=== PATIENT | male | born 1990 | race Caucasian/White ===

== ENCOUNTER 2017-06-22 18:23 | Emergency (ER) | payer OTHER ==
[2017-06-22 18:35] VITALS: RESP 20
[2017-06-22] MEDS ORDERED: ACETAMINOPHEN TAB 500 MG TAB PO STA (18:45)
[2017-06-22] MEDS ORDERED: IBUPROFEN 600 MG TAB PO STA (18:45)
--- NOTE | 2017-06-22 18:58 | ED ---
General Adult HPI - General Chief complaint: Upper Respiratory Infection Stated complaint: flu like symptoms, fever Time Seen by Provider: 06/22/17 18:41 Source: patient Mode of arrival: ambulatory Limitations: no limitations - History of Present Illness Initial comments: 27-year-old male patient presents to emergency department today for evaluation of fever, body aches, sore throat, and cough since Sunday. Patient states that symptoms started with body aches and sore throat Sunday evening. He states that over the last couple days he also developed a dry cough, and today felt feverish. He states that his ears hurt. States he took his temperature at home, it was 105 temporal. He states that he has had a headache with general bodyaches throughout the day today. He states he did take ibuprofen around 3:45 this afternoon. He denies any sick contacts. Patient denies any recent rash, shortness breath, chest pain, abdominal pain, nausea, vomiting, diarrhea, constipation, back pain, numbness, tingling, dizziness, weakness, hematuria, dysuria, urinary urgency, urinary frequency, visual changes, or any other complaints. - Related Data Home Medications Medication Instructions Recorded Confirmed Ibuprofen [Motrin] 800 mg PO ONCE PRN 06/22/17 06/22/17 Multivitamin [Men's Multi-Vitamin] 1 tab PO DAILY 06/22/17 06/22/17 Allergies Allergy/AdvReac Type Severity Reaction Status Date / Time No Known Allergies Allergy Verified 06/22/17 19:05 Review of Systems ROS Statement: Those systems with pertinent positive or pertinent negative responses have been documented in the HPI. ROS Other: All systems not noted in ROS Statement are negative. Past Medical History Past Medical History: No Reported History History of Any Multi-Drug Resistant Organisms: MRSA Date of last positivie culture/infection: 2006 MDRO Source:: leg Past Surgical History: No Surgical Hx Reported Past Psychological History: No Psychological Hx Reported Smoking Status: Former smoker Past Alcohol Use History: Occasional Past Drug Use History: None Reported General Exam Limitations: no limitations General appearance: alert, in no apparent distress, other (This is a well- developed, well-nourished adult male patient no acute distress. Vital signs on presentation temperature 102.7F, pulse 95, respirations 20, blood pressure 103/ 66, pulse ox 97% on room air.) Eye exam: Present: normal appearance, PERRL, EOMI. Absent: scleral icterus, conjunctival injection, periorbital swelling ENT exam: Present: normal exam, mucous membranes moist, TM's normal bilaterally. Absent: normal oropharynx (Oropharyngeal erythema with tonsillar hypertrophy. No tonsillar exudate noted.) Neck exam: Present: normal inspection. Absent: tenderness, meningismus, lymphadenopathy Respiratory exam: Present: normal lung sounds bilaterally. Absent: respiratory distress, wheezes, rales, rhonchi, stridor Cardiovascular Exam: Present: regular rate, normal rhythm, normal heart sounds. Absent: systolic murmur, diastolic murmur, rubs, gallop, clicks GI/Abdominal exam: Present: soft, normal bowel sounds. Absent: distended, tenderness, guarding, rebound, rigid Neurological exam: Present: alert, oriented X3, CN II-XII intact Psychiatric exam: Present: normal affect, normal mood Skin exam: Present: warm, dry, intact, normal color. Absent: rash Course Vital Signs 06/22/17 06/22/17 18:32 20:20 Temperature 102.7 F H 99.7 F H Pulse Rate 95 77 Respiratory 20 20 Rate Blood Pressure 103/66 136/63 O2 Sat by Pulse 97 96 Oximetry Medical Decision Making - Medical Decision Making 27-year-old male patient presented for evaluation of cough, sore throat, and fever. Influenza test was negative. Chest x-ray was clear. Patient was given Tylenol number Profen here in the department. Did have him drink 2 large glasses of water. He tolerated oral intake without difficulty. Vital signs have improved. Patient states he is feeling somewhat better. He will be discharged home with instructions to increase fluids, take Tylenol Motrin for fever control. Follow-up with his primary care physician for recheck in 1-2 days. Return here immediately for any new, worsening, or concerning symptoms. Patient verbalizes understanding and agrees with this plan. - Lab Data Lab Results 06/22/17 Range/Units 19:07 Influenza Type A RNA Not Detected (Not Detectd) Influenza Type B (PCR) Not Detected (Not Detectd) - Radiology Data Radiology results: report reviewed, image reviewed Two-view x-ray of the chest shows the heart and mediastinum are normal. Lungs are clear. Diaphragm is normal. Bony thorax appears normal. Pressure by Dr. Nichols shows normal chest. Disposition Clinical Impression: Viral upper respiratory infection Disposition: HOME SELF-CARE Condition: Good Instructions: Upper Respiratory Infection (ED) Additional Instructions: Continue Tylenol Motrin for fever control. Increase fluids. Follow-up with her primary care physician for recheck in 1-2 days. Return here immediately for any new, worsening, or concerning symptoms. Referrals: None,Stated [Primary Care Provider] - 1-2 days Time of Disposition: 20:45
--- NOTE | 2017-06-22 19:53 | XR ---
EXAMINATION TYPE: XR chest 2V DATE OF EXAM: 06/22/2017 COMPARISON: NONE HISTORY: Chest pain TECHNIQUE: Frontal and lateral views of the chest are obtained. FINDINGS: Heart and mediastinum are normal. Lungs are clear. Diaphragm is normal. Bony thorax appear s normal. IMPRESSION: Normal chest
[2017-06-22 20:24] VITALS: BP 136/63; PULSE 77; TEMP 99.7
== END 2017-06-22 20:49 | disposition home or self-care (01) ==
LOC: EC 18:23
DX: J06.9 Acute upper respiratory infection, unspecified (principal); Z79.899 Other long term (current) drug therapy; Z87.891 Personal history of nicotine dependence
CPT/HCPCS: 71020; 87502; 99283

== ENCOUNTER 2018-01-07 23:29 | Emergency (ER) | payer BC ==
[2018-01-07] MEDS ORDERED: IBUPROFEN 600 MG TAB PO STA (23:42)
--- NOTE | 2018-01-08 01:49 | XR ---
EXAMINATION TYPE: XR chest 2V DATE OF EXAM: 01/08/2018 COMPARISON: 06/22/2017 HISTORY: Cough TECHNIQUE: Frontal and lateral views of the chest are obtained. FINDINGS: Heart and mediastinum are normal. Lungs are clear. Diaphragm is normal. Bony thorax is nor mal. IMPRESSION: Normal chest. No change.
--- NOTE | 2018-01-08 01:58 | ED ---
URI HPI - General Chief Complaint: Upper Respiratory Infection Stated Complaint: FEVER Time Seen by Provider: 01/08/18 01:09 Source: patient, family, RN notes reviewed Mode of arrival: ambulatory Limitations: no limitations - History of Present Illness Initial Comments: This is a 27-year-old male who presents to the emergency department with chief complaint of cough and fever. Patient states states that symptoms started one week ago. He states that the cough is nonproductive. States he is a nonsmoker. He also admits to associated sore throat and stuffy nose. Denies difficulty breathing, chest pain, abdominal pain, nausea or vomiting, diarrhea or constipation. States he did not receive the influenza vaccine this year. - Related Data Home Medications Medication Instructions Recorded Confirmed No Known Home Medications [No 01/07/18 01/07/18 Known Home Medications] Allergies Allergy/AdvReac Type Severity Reaction Status Date / Time No Known Allergies Allergy Verified 01/07/18 23:39 Review of Systems ROS Statement: Those systems with pertinent positive or pertinent negative responses have been documented in the HPI. ROS Other: All systems not noted in ROS Statement are negative. Past Medical History Past Medical History: No Reported History History of Any Multi-Drug Resistant Organisms: MRSA Date of last positivie culture/infection: 2006 MDRO Source:: leg Past Surgical History: No Surgical Hx Reported Past Psychological History: No Psychological Hx Reported Smoking Status: Former smoker Past Alcohol Use History: Occasional Past Drug Use History: None Reported General Exam - General Exam Comments Initial Comments: General: Awake and alert, well-developed; in no apparent distress. HEENT: Head atraumatic, normocephalic. Pupils are equal, round and reactive to light. Extraocular movements intact. Oropharynx moist without erythema or exudate. Neck: Supple. Normal ROM. Cardiovascular: Regular rate and rhythm. No murmurs, rubs or gallops. Chest symmetrical. Respiratory: Lungs clear to auscultation bilaterally. No wheezes, rales or rhonchi. Normal respiratory effort with no use of accessory muscles. Musculoskeletal: Normal ROM, no tenderness bilateral upper and lower extremities. Ambulating normally. Skin: [place], warm and dry without rashes or lesions. Neurological: Alert and oriented x3. CN II-XII grossly intact. Speech is fluent and answers are appropriate. No focal neuro deficits. Psychiatric: Normal mood and affect. No overt signs of depression or anxiety noted. Limitations: no limitations Course Vital Signs 01/07/18 23:35 Temperature 100.5 F H Pulse Rate 81 Respiratory 20 Rate Blood Pressure 134/77 O2 Sat by Pulse 95 Oximetry Medical Decision Making - Medical Decision Making This is a 27-year-old male who presents to the emergency department with chief complaint of fever and cough. Patient states that he has had a nonproductive cough for the past one week. He states that he developed low-grade fevers today that he has been controlling with Tylenol. Lungs are clear to auscultation bilaterally. Patient is in no respiratory distress. He does not appear acutely ill. Chest x-ray revealed no acute cardiopulmonary processes. Influenza was negative. Return parameters were discussed with patient. He will be discharged home at this time. He is in agreement and voices understanding. All questions were answered. - Lab Data Lab Results 01/08/18 Range/Units 01:25 Influenza Type A RNA Not Detected (Not Detectd) Influenza Type B (PCR) Not Detected (Not Detectd) - Radiology Data Radiology results: report reviewed Chest x-ray findings: Heart and mediastinum are normal. Lungs are clear. Diaphragm is normal. Bony thorax is normal. Impression: Normal chest. No change. Disposition Clinical Impression: Upper respiratory infection Disposition: HOME SELF-CARE Condition: Good Instructions: Upper Respiratory Infection (ED) Additional Instructions: Please follow up with primary care provider within 1-2 days. Return to emergency department if symptoms should worsen or any concerns arise. Is patient prescribed a controlled substance at discharge?: No Referrals: None,Stated [Primary Care Provider] - 1-2 days Marlena Rivera MD [STAFF PHYSICIAN] - 1-2 days Timo Dunbar MD [STAFF PHYSICIAN] - 1-2 days Time of Disposition: 02:14
[2018-01-08 02:38] VITALS: BP 109/60; PULSE 59; RESP 18; TEMP 98.4
== END 2018-01-08 02:38 | disposition home or self-care (01) ==
LOC: EC 23:29
DX: J06.9 Acute upper respiratory infection, unspecified (principal); Z87.891 Personal history of nicotine dependence; Z86.14 Personal history of Methicillin resistant Staphylococcus aureus infection
CPT/HCPCS: 71046; 87502; 99283

== ENCOUNTER 2020-04-03 13:48 | Emergency (ER) | payer BC, OTHER ==
[2020-04-03 13:55] VITALS: BP 118/72; PULSE 67; RESP 16; TEMP 98.2
--- NOTE | 2020-04-03 14:15 | ED ---
Lower Extremity Injury HPI - General Chief Complaint: Extremity Injury, Lower Stated Complaint: L Knee Injury Time Seen by Provider: 04/03/20 13:59 Source: patient, RN notes reviewed, old records reviewed Mode of arrival: ambulatory Limitations: no limitations - History of Present Illness Initial Comments: Patient's a 29-year-old male presents emergency department today for a valve her concern for left knee pain. Patient reports he was running [place] playing baseball last night and the catcher got in between his legs at home plate and he twisted his left leg. Patient complains of hearing a pop at that time. He reports that since last night he's been unable to fully extend the leg and complains of pain over the lateral portion of the knee. He denies any posterior calf pain or upper thigh pain. He reports normal sensation to the foot and leg. - Related Data Previous Rx's Medication Instructions Recorded Ibuprofen [Motrin] 600 mg PO Q8HR PRN #20 tab 04/03/20 Allergies Allergy/AdvReac Type Severity Reaction Status Date / Time No Known Allergies Allergy Verified 04/03/20 13:55 Review of Systems ROS Statement: Those systems with pertinent positive or pertinent negative responses have been documented in the HPI. ROS Other: All systems not noted in ROS Statement are negative. Past Medical History Past Medical History: No Reported History History of Any Multi-Drug Resistant Organisms: MRSA Date of last positivie culture/infection: 2006 MDRO Source:: leg Past Surgical History: No Surgical Hx Reported Past Psychological History: No Psychological Hx Reported Smoking Status: Former smoker Past Alcohol Use History: Occasional Past Drug Use History: None Reported General Exam - General Exam Comments Initial Comments: 29-year-old male. Alert and oriented 3. Patient appears in no significant distress. Limitations: no limitations General appearance: alert, in no apparent distress Head exam: Present: atraumatic, normocephalic, normal inspection Eye exam: Present: normal appearance, PERRL, EOMI. Absent: scleral icterus, conjunctival injection, periorbital swelling ENT exam: Present: normal exam, mucous membranes moist Neck exam: Present: normal inspection. Absent: tenderness, meningismus, lymphadenopathy Respiratory exam: Present: normal lung sounds bilaterally. Absent: respiratory distress, wheezes, rales, rhonchi, stridor Cardiovascular Exam: Present: regular rate, normal rhythm, normal heart sounds. Absent: systolic murmur, diastolic murmur, rubs, gallop, clicks Left Upper Leg exam: Present: normal inspection, full ROM Knee exam: Present: normal inspection, full ROM, tenderness (medial meniscus ), pain/laxity with valgus Lower Leg exam: Present: normal inspection, full ROM Ankle exam: Present: normal inspection, full ROM Foot/Toe exam: Present: normal inspection, full ROM Neurovascular tendon exam: Present: no vascular compromise Gait: observed and normal Neurological exam: Present: alert, oriented X3, CN II-XII intact Psychiatric exam: Present: normal affect, normal mood Skin exam: Present: warm, dry, intact, normal color. Absent: rash Course Vital Signs 04/03/20 13:53 Temperature 98.2 F Pulse Rate 67 Respiratory 16 Rate Blood Pressure 118/72 O2 Sat by Pulse 99 Oximetry Procedures - Orthopedic Splinting/Casting Injury #1 Side: left Lower Extremity Injury Location: knee Lower Extremity Immobilizer: knee immobilizer Medical Decision Making - Medical Decision Making 29-year-old male presents return today with complaints of left knee pain after spraining it while running playing baseball yesterday. Patient is neurovascu larly intact. He has some tenderness and mild laxity over the lateral ligament. Patient if he states he is unable to fully extend or locked knee. At this time patient's knee x-rays negative for fracture. I discussed the Patient that likely has meniscus tear and lateral ligament . Discussed following up with orthopedic and will discharge the anti-inflammatory medication. Was placed in a knee immobilizer. Discussed return parameters and follow-up with PCP. - Radiology Data Radiology results: report reviewed L knee x-rays negative for any acute fracture dislocation. Disposition Clinical Impression: Left knee sprain, Injury of meniscus of left knee Disposition: HOME SELF-CARE Condition: Good Instructions (If sedation given, give patient instructions): Knee Sprain (ED) Additional Instructions: Please use medication as discussed. Please follow up with orthopedic doctor if symptoms have not improved over the next two days. Patient should rest, ice, elevate the knee. Please return to the emergency room if your symptoms increase or worsen or for any other concerns. Prescriptions: Ibuprofen [Motrin] 600 mg PO Q8HR PRN #20 tab PRN Reason: Pain Is patient prescribed a controlled substance at d/c from ED?: No Referrals: None,Stated [Primary Care Provider] - 1-2 days Ad Diaz, PAC [PHYSICIAN [employer]] - 1-2 days Time of Disposition: 14:46
--- NOTE | 2020-04-03 14:39 | XR ---
EXAMINATION TYPE: XR knee complete LT DATE OF EXAM: 04/03/2020 CLINICAL HISTORY: pain TECHNIQUE: Three views of the left knee are obtained. COMPARISON: None. FINDINGS: There is no acute fracture/dislocation. The tri-compartment joint spaces appear within no rmal limits. The overlying soft tissue appears unremarkable. IMPRESSION: There is no acute fracture or dislocation ICD 10 NO FRACTURE, INITIAL EVALUATION
== END 2020-04-03 15:01 | disposition home or self-care (01) ==
LOC: EC 13:48
DX: S83.8X2A Sprain of other specified parts of left knee, initial encounter (principal); Z87.891 Personal history of nicotine dependence; Z86.14 Personal history of Methicillin resistant Staphylococcus aureus infection; X50.3XXA Overexertion from repetitive movements, initial encounter; Y93.64 Activity, baseball
CPT/HCPCS: 99284; 73562; L1830

== ENCOUNTER 2021-11-27 19:12 | Emergency (ER) | payer OTHER ==
[2021-11-27 19:16] VITALS: PULSE 89; RESP 18
--- NOTE | 2021-11-27 20:08 | ED ---
General Adult HPI - General Chief complaint: Upper Respiratory Infection Stated complaint: Cough, Fever Time Seen by Provider: 11/27/21 19:27 Source: patient Mode of arrival: ambulatory Limitations: no limitations - History of Present Illness Initial comments: This 31-year-old male presents emergency Department with cough, nasal congestion and sore throat that began on Sunday. Patient states about 10 days ago his tested positive for COVID-19. Patient states he did have some of the symptoms at that time but did not get tested at that time. Patient states on Sunday night he began to feel better, however when he woke up on Sunday his symptoms had returned. Patient states he has also been experiencing an on-and-off fever since Sunday and states it was 102 earlier today so he took Motrin and has felt improvement since which was around 2:00pm. Patient states he did have a headache on , however that did resolve on its own. Patient states he is here today to get evaluated to make sure he does not have COVID-19 again. Patient states he has been eating, however he does have a little bit less of an appetite. Patient states his children at home have similar symptoms to his. Patient states his symptoms have improved from Sunday, however he still does have nasal congestion and a cough that seems to come and go. Patient denies any chest pain, shortness of breath, mucous production with his cough, hemoptysis, trouble breathing, nausea, vomiting, change in bowel or bladder, change in vision, lightheadedness, dizziness or weakness. - Related Data Home Medications Medication Instructions Recorded Confirmed No Known Home Medications 11/27/21 11/27/21 Allergies Allergy/AdvReac Type Severity Reaction Status Date / Time No Known Allergies Allergy Verified 11/27/21 20:36 Review of Systems ROS Statement: Those systems with pertinent positive or pertinent negative responses have been documented in the HPI. ROS Other: All systems not noted in ROS Statement are negative. Past Medical History Past Medical History: No Reported History History of Any Multi-Drug Resistant Organisms: MRSA Date of last positivie culture/infection: 2006 MDRO Source:: leg Past Surgical History: No Surgical Hx Reported Past Psychological History: No Psychological Hx Reported Smoking Status: Never smoker Past Alcohol Use History: Occasional Past Drug Use History: None Reported General Exam Limitations: no limitations General appearance: alert, in no apparent distress Head exam: Present: other (Patient does sound like he has some nasal congestion. Patient without any tenderness over maxillary, ethmoid or frontal sinuses.) Eye exam: Present: normal appearance, PERRL, EOMI Pupils: Present: normal accommodation ENT exam: Present: normal exam, normal oropharynx (Posterior oropharynx without any erythema. No tonsillar exudates noted. Uvula midline. Peritonsillar abscesses visualized. Patient not having any trouble breathing or swallowing.), mucous membranes moist Neck exam: Present: normal inspection, full ROM. Absent: tenderness, meningismus, lymphadenopathy Respiratory exam: Present: normal lung sounds bilaterally. Absent: respiratory distress, wheezes, rales, rhonchi, stridor, chest wall tenderness Cardiovascular Exam: Present: regular rate, normal rhythm, normal heart sounds. Absent: systolic murmur, diastolic murmur, rubs, gallop, clicks GI/Abdominal exam: Present: soft, normal bowel sounds. Absent: distended, tenderness, guarding, rebound, rigid Extremities exam: Present: normal inspection, full ROM, normal capillary refill. Absent: tenderness, pedal edema, joint swelling, calf tenderness Back exam: Present: full ROM. Absent: CVA tenderness (R), CVA tenderness (L), paraspinal tenderness, vertebral tenderness Neurological exam: Present: alert, oriented X3, CN II-XII intact, normal gait Psychiatric exam: Present: normal affect, normal mood Skin exam: Present: warm, dry, intact, normal color. Absent: rash Course Vital Signs 11/27/21 11/27/21 19:14 21:05 Temperature 98.0 F 98 F Pulse Rate 89 89 Respiratory 18 18 Rate Blood Pressure 139/84 118/98 O2 Sat by Pulse 99 98 Oximetry Medical Decision Making - Medical Decision Making This 31-year-old male presents emergency department with cough, nasal congest ion, and sore throat that began on Sunday. Patient states his symptoms have gotten better from Sunday, however he still does have significant nasal congestion. Chest x-ray without any abnormalities. COVID-19 negative. I did offer the patient a prescription for Flonase and Tessalon Perles, however patient stated he would prefer to get [id number] nasal decongestant and cough suppressant. Informed patient likely has an upper respiratory infection. Patient states as of right now his only complaint is nasal congestion. Due to patient not having any tonsillar exudates, posterior oropharynx erythema, lymphadenopathy, fever while in the emergency room and having a cough present, I did not swab him for strep throat due to him not meeting [facility] criteria. Strict return precautions were discussed with patient. Patient verbally agreed to plan. Patient sent home in stable condition. Case discussed with my attending, . - Lab Data Lab Results 11/27/21 Range/Units 19:56 Coronavirus (PCR) Not Detected (Not Detectd) Disposition Clinical Impression: Upper respiratory infection Disposition: HOME SELF-CARE Condition: Stable Instructions (If sedation given, give patient instructions): Upper Respiratory Infection (ED) Additional Instructions: Please return to the emergency department with any new, worsening, or concerning symptoms. Please follow up with primary care provider next 1-2 days. Can take [id number] Flonase or nasal decongestant such as Mucinex for nasal congestion. Can take [id number] Robitussin for your cough. Can get a vaporizer/humidifier. Can take Tylenol and Motrin for symptom relief/fever Is patient prescribed a controlled substance at d/c from ED?: No Referrals: None,Stated [Primary Care Provider] - 1-2 days Moise Gomez [STAFF PHYSICIAN] - 1-2 days Time of Disposition: 21:02
--- NOTE | 2021-11-27 20:22 | XR ---
EXAMINATION TYPE: XR chest 2V DATE OF EXAM: 11/27/2021 COMPARISON: 01/08/2018 HISTORY: Cough and fever TECHNIQUE: 2 views FINDINGS: Heart and mediastinum are normal. Lungs are clear. Diaphragm is normal. Bony thorax appears normal. IMPRESSION: Normal chest. No change.
[2021-11-27 21:06] VITALS: BP 118/98; TEMP 98
== END 2021-11-27 21:13 | disposition home or self-care (01) ==
LOC: EC 19:12
DX: J06.9 Acute upper respiratory infection, unspecified (principal); Z20.822 Contact with and (suspected) exposure to COVID-19
CPT/HCPCS: 71046; 87635; 99283

== ENCOUNTER 2022-03-21 13:20 | Emergency (ER) | payer OTHER ==
[2022-03-21 14:34] VITALS: BP 122/78; PULSE 67; RESP 20; TEMP 97.6
[2022-03-21] MEDS ORDERED: DEXAMETHASONE SOD PHOSPHATE 10 MG/ML 1 ML VIAL IM STA (14:47)
[2022-03-21] MEDS ORDERED: ORPHENADRINE 30 MG/ML 2 ML VIAL IM STA (14:51)
--- NOTE | 2022-03-21 15:00 | ED ---
Back Pain HPI - General Chief Complaint: Back Pain/Injury Stated Complaint: Chest Pain Time Seen by Provider: 03/21/22 14:39 Source: patient, RN notes reviewed Limitations: no limitations - History of Present Illness Initial Comments: This is a 31-year-old male who presents to the emergency department with pain in the left upper quadrant/lower chest radiating into the thoracic spine. 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 He wonders if he may have strained a muscle or injured himself in some other way, as the pain has continued to progress. It is now very painful to take a deep breath or lay down at night. Denies any fevers, chills, sore throat, cough, palpitations, abdominal pain, nausea, vomiting, diarrhea, back pain, or headaches. MD Complaint: back pain Onset/Timin -: week(s) Similar Symptoms Previously: No Place: street Improves With: immobilization Worsens With: movement, deep breaths/cough - Related Data Previous Rx's Medication Instructions Recorded Diclofenac Sodium [Voltaren] 75 mg PO BID #20 tab 03/21/22 methocarbamoL [Methocarbamol] 750 mg PO TID PRN #20 tablet 03/21/22 Allergies Allergy/AdvReac Type Severity Reaction Status Date / Time No Known Allergies Allergy Verified 03/21/22 14:34 Review of Systems ROS Statement: Those systems with pertinent positive or pertinent negative responses have been documented in the HPI. ROS Other: All systems not noted in ROS Statement are negative. Past Medical History Past Medical History: No Reported History History of Any Multi-Drug Resistant Organisms: MRSA Date of last positivie culture/infection: 2006 MDRO Source:: leg Past Surgical History: No Surgical Hx Reported Past Psychological History: No Psychological Hx Reported Smoking Status: Never smoker Past Alcohol Use History: Occasional Past Drug Use History: None Reported General Exam Limitations: no limitations General appearance: alert, in no apparent distress Head exam: Present: atraumatic, normocephalic, normal inspection Respiratory exam: Present: chest wall tenderness, decreased breath sounds (secondary to pain). Absent: accessory muscle use Cardiovascular Exam: Present: regular rate, normal rhythm, normal heart sounds. Absent: systolic murmur, diastolic murmur, rubs, gallop, clicks Neurological exam: Present: alert, oriented X3, CN II-XII intact Psychiatric exam: Present: normal affect, normal mood Skin exam: Present: warm, dry, intact, normal color. Absent: rash Course Vital Signs 03/21/22 14:28 Temperature 97.6 F Pulse Rate 67 Respiratory 20 Rate Blood Pressure 122/78 O2 Sat by Pulse 99 Oximetry Medical Decision Making - Medical Decision Making This is a 31 year old male who presents to the emergency department for pain in the chest and thoracic spine. Pain is reproducible and worse with inspiration. X-rays of the chest and thoracic spine were obtained revealing no acute irregularities. Well's Criteria for PE is negative. Patient given Decadron, which he believes did improve symptoms to an extent. This is likely a muscular strain that has not had time to heal given that the patient continues to work in a labor intensive job with his symptoms. Rx for Diclofenac and Robaxin sent to the pharmacy. Instructed him to avoid taking other NSAIDs with the Diclofenac and warned him that the Robaxin can be sedating and he should take this at night until he knows how it affects him. Also instructed him to do light duty at work and to ensure he is taking several deep breaths each day to avoid developing a secondary pneumonia. Return precautions reviewed in depth, the patient is instructed to return to the emergency department with any new, worsening, or concerning symptoms. Patient verbalized understanding. This case was discussed in detail with the attending ED physician. Presentation, findings, and treatment plan discussed in detail as well. - Radiology Data Radiology results: report reviewed, image reviewed Disposition Clinical Impression: Chest wall muscle strain, Strain of thoracic back region Disposition: HOME SELF-CARE Instructions (If sedation given, give patient instructions): Muscle Strain (DC), Thoracic Back Strain (ED) Additional Instructions: Return to the emergency department with any new, worsening, or concerning symptoms. Be sure to do light duty at work to avoid further exacerbating symptoms. Take the diclofenac as needed up to twice daily for pain, do not take this with any other anti-inflammatories such as ibuprofen. You can take this with Tylenol. Take the muscle relaxant at night until you know how it affects you, as it may be sedating. Do not drive or operate machinery while taking this. Apply heat to the areas of pain. Follow up with your primary care provider in 1-2 days. Prescriptions: methocarbamoL [Methocarbamol] 750 mg PO TID PRN #20 tablet PRN Reason: Pain Diclofenac Sodium [Voltaren] 75 mg PO BID #20 tab Is patient prescribed a controlled substance at d/c from ED?: No Referrals: None,Stated [Primary Care Provider] - 1-2 days
--- NOTE | 2022-03-21 15:43 | XR ---
EXAMINATION TYPE: XR chest 2V, XR thoracic spine 3 views complete DATE OF EXAM: 03/21/2022 COMPARISON: 11/27/2021 HISTORY: 31-year-old male chest and back pain. FINDINGS: Chest: The cardiomediastinal silhouette, aorta, and pulmonary vasculature are within normal limits. Lungs an d pleural spaces are clear. Thoracic spine: 12 rib-bearing thoracic vertebral bodies. All pedicles are visualized. Vertebral body heights are pre served and alignment is maintained. IMPRESSION: 1. Chest: No acute cardiopulmonary process. 2. Thoracic spine: No vertebral compression collapse or malalignment.
== END 2022-03-21 16:24 | disposition home or self-care (01) ==
LOC: EC 13:20
DX: S29.011A Strain of muscle and tendon of front wall of thorax, initial encounter (principal); S29.012A Strain of muscle and tendon of back wall of thorax, initial encounter; X58.XXXA Exposure to other specified factors, initial encounter
CPT/HCPCS: 72072; 71046; 99283; 96372; J1100